=== PATIENT | male | born 1995 | race Caucasian/White ===

== ENCOUNTER 2016-11-09 05:25 | Day surgery (SDC) | payer OTHER ==
[2016-11-02 10:40] LABS: HEMATOCRIT 48.5 % (37.9-51.0); HEMOGLOBIN 16.6 g/dL (13.5-17.0); HGB HCT DIFFERENCE 1.3; MEAN CORPUSCULAR HEMOGLOBIN 30.5 pg (27.0-33.4); MEAN CORPUSCULAR HGB CONC 34.2 g/dL (32.0-36.0); MEAN CORPUSCULAR VOLUME 89 fl (80-97); RED BLOOD COUNT 5.42 10^6/uL (4.35-5.55); RED CELL DISTRIBUTION WIDTH 12.6 % (11.5-14.0); WHITE BLOOD COUNT 5.8 10^3/uL (4.0-10.5)
[~2016-11-09 05:25] MED LIST: CEFAZOLIN 2 GM/D5W RTU 2 GM/50 ML RTUPB IV PRN; LACTATED RINGERS 1000 ML IV PRN; LIDOCAINE 0.5% INJ-PF (5 MG/ML) 50 ML SDV SUBCUT PRN
[2016-11-09] MEDS ORDERED: BUPIVACAINE HCL 0.25 % INJ/PF (2.5 MG/1 ML) 30 ML VIAL ONE (06:30)
[2016-11-09] MEDS ORDERED: MIDAZOLAM 2 MG/2 ML INJ ONE (06:33)
[2016-11-09] MEDS ORDERED: FENTANYL CITRATE INJ/PF 100 MCG/2 ML AMPUL ONE ×2 (06:33)
[2016-11-09] MEDS ORDERED: PROPOFOL INJ 200 MG/20 ML VIAL IV ONE (06:34)
[2016-11-09] MEDS ORDERED: DEXMEDETOMIDINE INJ 80 MCG/20 ML VIAL IV ONE (06:34)
[2016-11-09] MEDS ORDERED: MORPHINE SULFATE 10 MG/ML INJ IV PRN (08:06)
[2016-11-09] MEDS ORDERED: MEPERIDINE HCL/PF INJ 25 MG/1 ML DISP.SYRIN IV PRN (08:06)
[2016-11-09] MEDS ORDERED: FENTANYL CITRATE INJ/PF 100 MCG/2 ML AMPUL IV PRN ×3 (08:06)
[2016-11-09] MEDS ORDERED: DIPHENHYDRAMINE HCL 50 MG/ML VIAL IV PRN (08:06)
[2016-11-09] MEDS ORDERED: PROMETHAZINE HCL INJ 25 MG/1 ML VIAL IV PRN (08:06)
[2016-11-09] MEDS ORDERED: LIDOCAINE 2% INJ-PF (20 MG/ML) 10 ML AMPUL ONE (09:41)
[2016-11-09] MEDS ORDERED: ONDANSETRON HCL INJ/PF 4 MG/2 ML SDV ONE (09:41)
[2016-11-09] MEDS ORDERED: DEXAMETHASONE SOD PHOSPHATE INJ 4 MG/1 ML VIAL ONE (09:41)
[2016-11-09] MEDS ORDERED: OXYCODONE-ACETAMINOPHEN 5-325 MG TABLET PO PRN (10:08)
[2016-11-09] MEDS ORDERED: HYDROMORPHONE HCL INJ/PF 2 MG/ML AMPULE IV PRN (10:09)
[2016-11-09] MEDS ORDERED: ONDANSETRON HCL INJ/PF 4 MG/2 ML SDV IV PRN (10:10)
[2016-11-09 11:45] VITALS: BP 104/61
--- NOTE | 2016-11-09 16:33 | OPERATIVE REPORT E ---
Operative Report NAME: KEE GILES : 1995 AGE: 21Y DATE OF SURGERY: 11/09/2016 ROOM: PREOPERATIVE DIAGNOSIS: Left grade 3 varicocele. POSTOPERATIVE DIAGNOSIS: Left grade 3 varicocele. OPERATION: Left microscopic varicocelectomy. SURGEON: JULIUS AMIN D.O. *------* SALESPERSON PI[employer]OS [employer]: KELLY LORA M.D. *------* INDICATIONS FOR PROCEDURE: The patient is a 21-year-old male with history of left scrotal pain and swelling. He had a left grade 3 varicocele on exam. He was counseled on the risks, benefits, and side effects of a left-sided varicocelectomy. He decided to proceed. ANESTHESIA: General. INTRAVENOUS FLUIDS: 800 mL lactated Ringer's. ESTIMATED BLOOD LOSS: Less than 5 mL. URINE OUTPUT: Zero. COMPLICATIONS None. SPECIMEN: None. IMPLANTS: None. DRAINS: None. FINDINGS: Four dilated veins in the pampiniform plexus. PROCEDURE: The patient was met in the preop holding. Risks, benefits, side effects of a left-sided microscopic varicocelectomy were again reviewed with the patient. He consented to the procedure. He was brought to the operative theatre table and placed in the supine position where general anesthesia was induced. He was sterilely prepped and draped in the usual fashion. A time-out was performed to ensure proper patient, proper procedure, proper laterality being the left. Preoperative antibiotics were administered, and preoperative radiographs were reviewed, and with all in agreement we proceeded. A 4-cm incision was made just superior and lateral to the external inguinal ring and deepened down through to the external oblique fascia which was opened with the Metzenbaum scissor in the direction of its fibers. The cord was fully dissected from its attachments in the inguinal canal and then isolated with a Josie drain. We entered the external internal spermatic fascia with electrocautery, and then discovered 4 dilated vein in the pampiniform plexus. The artery was identified with Doppler ultrasound. The 4 dilated veins were sequentially tied with 4-0 silk ties and returned to the inguinal canal. Cord block was obtained with 0.25% Marcaine, and then the external oblique fascia was closed in a running fashion with a 2-0 Vicryl suture; 3-0 Vicryl interrupted sutures were used to close the Oksana's, and then the subcutaneous tissues. A 4-0 Monocryl suture was used to close the skin and subcuticular fascia, and the skin was sealed with Dermabond. A scrotal support and soft gauze dressing were placed. The patient was awakened and taken to the PACU in good condition. At the conclusion of the case, all instrument, needle, and sponge counts were complete and correct. DICTATING PHYSICIAN: JULIUS AMIN D.O. [id number] PHY#: [id number] ID: [id number] JOB#: [id number] ACCT: [id number] cc:Wilfredo Fajardo D.O. >
== END 2016-11-09 11:15 | disposition home or self-care (01) ==
LOC: OROUT 05:25
PROVIDERS: ATTEND Surgery
PROC: 0VBG0ZZ Excision of Left Spermatic Cord, Open Approach (ICD-10-PCS; principal; 2016-11-09 07:30)
DX: I86.1 Scrotal varices (principal); I10 Essential (primary) hypertension; K21.9 Gastro-esophageal reflux disease without esophagitis; M19.079 Primary osteoarthritis, unspecified ankle and foot
CPT/HCPCS: 36415; 85027; 55540; J2250; J1100; J3010; J2405; J2704; J3490 ×2; J0690; 920